=== PATIENT | male | born 1945 | race Caucasian/White ===

== ENCOUNTER 2016-05-06 09:45 | Emergency (ER) | payer OTHER ==
--- NOTE | ~2016-05-06 | CR72 ---
[facility] A Service of [facility] & [facility] RADIOLOGY TEXT RESULTS PATIENT: KOREY SOW LOCATION: [facility] : 47 UNIT #: [id number] AGE: [address]: Arnie Arce MD SEX: M ORDER DR: [id number] [facility] [address] [place] [address]. [place], [place] [address] [id number] E MR#: [id number] Acc #: [id number] NAME: KOREY SOW : 1945 SEX: M STUDY DATE/TIME: 05/06/2016 9:56 UNIT: [facility] ROOM: STUDY DESCRIPTION: CR Chest Single View Portable Attending Physician: Arnie Arce M.D. Ordering Physician: [id number] Andrew Arce Primary Care Physician: Primary Care Physician No MEDICAL IMAGING REPORT This report is preliminary unless electronic signature is present EXAM Chest x-ray single view portable. HISTORY Short of air, chest pain, left-sided starting last night. COMMENTS Single frontal portable view of the chest timed 09:56 05/06/2016 reviewed. No comparisons. Mild elevation left hemidiaphragm with small amount of left base airspace disease which is fairly linear and probably atelectasis. Heart size is borderline. No pleural effusion. No pneumothorax. IMPRESSION Mild elevation of left hemidiaphragm with small amount of linear left base airspace disease which is likely atelectasis. Please exclude any clinical concern for aspiration or early pneumonia. Follow up suggested. Dictated by... Camille Waggoner M.D. THIS IS AN ELECTRONICALLY VERIFIED REPORT Camille Waggoner M.D. at 05/06/2016 4:31 PM AIDEE/alysia TD: 05/06/2016 13:33 JOB #: [id number] MEDICAL IMAGING REPORT COPY
--- NOTE | ~2016-05-06 | EKG ---
PATIENT: KOREY SOW UNIT #: [id number] Ventricular Rate: 81 BPM Atrial Rate: 81 BPM P-R Interval: 184 ms QRS Duration: 74 ms Q-T Interval: 358 ms QTC Calculation(Bezet): 415 ms P [place]: -3 degrees Calculated R [place]: 40 degrees Calculated T [place]: 32 degrees Diagnosis Line: Sinus rhythm with occasional Premature ventricular Diagnosis Line: complexes Diagnosis Line: Increased R/S ratio in V1, consider early Diagnosis Line: transition or posterior infarct Borderline ECG Diagnosis Line: No previous ECGs available Diagnosis Line: Confirmed by DAFNE WASSERMAN MD ([id number]) on 05/06/2016 Diagnosis Line: 4:46:20 PM INTERPRETING MD: LISY AMAYA
--- NOTE | ~2016-05-06 | CT16 ---
[facility] A Service of [facility] RADIOLOGY TEXT RESULTS PATIENT: KOREY SOW LOCATION: [facility] : 46 UNIT #: [id number] AGE: [address]: Arnie Arce MD SEX: M ORDER DR: [id number] [facility] [address]. [place], [place] [address] [id number] E MR#: [id number] Acc #: [id number] NAME: KOREY SOW : 1945 SEX: M STUDY DATE/TIME: 05/06/2016 11:41 UNIT: [facility] ROOM: STUDY DESCRIPTION: CT Angio Chest for PE Attending Physician: Arnie Arce M.D. Ordering Physician: Arnie Arce M.D. Primary Care Physician: No Primary Care Physician MEDICAL IMAGING REPORT This report is preliminary unless electronic signature is present EXAM CTA chest with contrast, pulmonary embolism protocol DATE 05/06/2016 HISTORY 70-year-old male. Left side chest pain and left arm pain since 05/05/2016. COMPARISON AP portable chest 05/06/2016 at 0956. PROCEDURE 2 mm axial images from the thoracic inlet through the upper abdomen after intravenous contrast administration. 3D coronal MIP reformatted images were obtained. This CT exam was performed with one or more of the following radiation dose reduction techniques: automatic exposure control, adjustment of mA and/or kV according to patient size, and iterative reconstruction. FINDINGS Study is attenuated by patient body habitus. No pulmonary embolism is visualized. No thoracic aortic dissection is seen. There is mild aneurysmal dilation in the ascending thoracic aorta up to 3.2 cm. Coronary artery calcifications are present. Trace fluid is present within pericardial recesses. Scattered linear atelectatic-type changes are present within the bilateral lower lobes and within the lingula and right middle lobe. No dense consolidations are identified. No pneumothorax. Low-density lesion in the right hepatic lobe measures 1.1 cm, thought to represent a cyst. Mild left adrenal gland thickening without discrete nodularity thought to represent changes of hyperplasia. Left adrenal gland is incompletely imaged on this exam. [facility] A Service of [facility] RADIOLOGY TEXT RESULTS PATIENT: KOREY SOW LOCATION: [facility] : 47 UNIT #: [id number] AGE: [address]: Arnie Arce MD SEX: M ORDER DR: No acute osseous abnormalities are identified. IMPRESSION 1. No pulmonary embolism. 2. Mild aneurysmal dilation of the descending thoracic aorta up to 3.2 cm. No dissection. 3. Calcific atherosclerotic changes within the coronary arteries. Correlate with cardiac history. 4. 1.0 hepatic cyst. 5. Linear subsegmental atelectasis in the lung bases. No consolidation. 6. Probable left adrenal hyperplasia, incompletely imaged on this examination. Dictated by... Vicky Dodge M.D. THIS IS AN ELECTRONICALLY VERIFIED REPORT Vicky Dodge M.D. at 05/08/2016 7:02 PM FATEMEH/sophia TD: 05/06/2016 15:16 JOB #: [id number] MEDICAL IMAGING REPORT COPY
[2016-05-06 09:53] LABS: BASOPHIL% 0.4 % (0-2.5); EOSINOPHIL# 0.2 X10e3 (0-0.7); HEMATOCRIT 45.1 % (38.0-50.0); HEMOGLOBIN 14.9 gm/dL (13.0-16.0); LYMPHOCYTE# 1.5 X10e3 (1.0-3.5); LYMPHOCYTE% 17.6 % (17.0-45.0); MEAN CELL VOLUME 89.5 FL (83-96); MEAN CORPUSCULAR HEMOGLOBIN 29.7 PG (28-34); MEAN CORPUSCULAR HGB CONC 33.2 g/dL (30-36); MEAN PLATELET VOLUME 7.8 FL (6.5-11.5); MONOCYTE# 1.2 X10e3 (0-1.0); MONOCYTE% 13.9 % (3.0-12.0); NEUTROPHIL# 5.5 X10e3 (1.5-7.1); NEUTROPHIL% 66.1 % (40-75); PLATELET COUNT 334 X10e3 (140-420); RED BLOOD COUNT 5.04 X10e (3.90-5.60); RED CELL DISTRIBUTION WIDTH 13.5 % (11.0-15.5); WHITE BLOOD COUNT 8.4 X10e3 (4.0-10.5)
[2016-05-06 09:58] LABS: DIFF IND NO
[2016-05-06 09:59] LABS: POC - TROPONIN <0.05 ng/mL (<=0.05)
[2016-05-06 10:04] LABS: PARTIAL THROMBOPLASTIN TIME 27.8 SECONDS (23.5-31.3); PROTHROMBIN TIME (PATIENT) 10.2 SECONDS (9.6-11.5)
[2016-05-06 10:18] LABS: ALKALINE PHOSPHATASE 69 U/L (32-92); ALT (SGPT) 14 U/L (10-40); AST (SGOT) 15 U/L (10-42); BILIRUBIN, DIRECT 0.1 mg/dL (0.0-0.2); BILIRUBIN,INDIRECT 0.4 mg/dL (0.0-0.9); BILIRUBIN,TOTAL 0.5 mg/dL (0.2-2.0); BLOOD UREA NITROGEN 13 mg/dL (9-23); CARBON DIOXIDE 26 mmol/L (22-31); CHLORIDE 102 mmol/L (100-111); GLOM FILT RATE Estimated ABOVE60 mL/min (>60); GLUCOSE FASTING 109 mg/dL (70-110); POTASSIUM 4.2 mmol/L (3.5-5.1); PROTEIN TOTAL SERUM 7.7 g/dL (6.0-8.3); SODIUM 137 mmol/L (135-145)
[2016-05-06 11:41] LABS: POC - CKMB <1.0 ng/mL (0.0-7.9); POC - TROPONIN <0.05 ng/mL (<=0.05)
== END 2016-05-06 13:21 | disposition home or self-care (01) ==
LOC: CED 09:45
PROVIDERS: Emergency Medicine
DX: I10 Essential (primary) hypertension (principal); I71.9 Aortic aneurysm of unspecified site, without rupture
CPT/HCPCS: 36415; 71010; 71275; 80048; 80076; 82553; 84484; 85025; 85379; 85610; 85730; 93005; 96374; 99284; J1885; Q9967